=== PATIENT | female | born 1990 | race Caucasian/White ===

== ENCOUNTER 2016-08-25 06:55 | Inpatient (IN) | payer MEDICAID ==
[~2016-08-25] VITALS: Ht 165.1 cm; Wt 112.0 kg
--- NOTE | ~2016-08-25 | FD ---
ADMIT: 08/25/2016 RM/LOC: 201 [facility] MR#: [id number] [address] [address] WEEKS, MARIA EUGENIA Seymour [address] [place] [address] Final Diagnosis SEX: F AGE: 26 : 1990 ADMISSION DATE: 08/25/2016 DISCHARGE DATE: 08/27/2016 FINAL DIAGNOSIS: 1. Term intrauterine at 39 weeks 2 days. 2. Active labor. 3. Rubella nonimmune. 4. Rh (Rhesus) negative. 5. Group B strep (Streptococcus) positive. PROCEDURE: Spontaneous vaginal delivery. Phyllis Oro MD/ dolly JOB #: [id number] CC: Kaylee Collins MD, Attending Physician Phyllis Oro MD, Family Physician
--- NOTE | ~2016-08-25 | OR ---
ADMIT: 08/25/2016 RM/LOC: 201 [facility] MR#: [id number] 26[address] [facility] [address] [place], [place] [address] WEEKS, MARIA EUGENIA Seymour [address] [place] [address] Operative/Delivery Room Report SEX: F AGE: 26 : 1990 SURGERY DATE: 08/25/2016 SURGEON: Phyllis Oro MD PREOPERATIVE DIAGNOSES: 1. Term intrauterine at 39 weeks and 2/7th days. 2. Active labor. 3. Group B streptococcus positive. 4. Rubella nonimmune. 5. Rhesus negative. POSTOPERATIVE DIAGNOSES: 1. Term intrauterine at 39 weeks and 2/7th days. 2. Active labor. 3. Group B streptococcus positive. 4. Rubella nonimmune. 5. Rhesus negative. PROCEDURE: Spontaneous vaginal delivery. FINDINGS: Viable male infant with scores of 8 and 9 and a weight of 7 pounds 6.5 ounces, intact placenta with three-vessel cord. Second-degree laceration of the perineum was noted and repaired. INDICATIONS FOR PROCEDURE: This is a 26-year-old , who presented to Labor and Delivery at 39 weeks and 2 days by 11-week ultrasound. Upon presentation to the Labor and Delivery, she was found to be complete with a bulging bag and ruptured spontaneously shortly thereafter. Penicillin for GBS prophylaxis was not able to be initiated prior to delivery due to rapid delivery after her presentation. DESCRIPTION OF PROCEDURE: With sterile drapes under maternal buttocks and with maternal expulsive efforts, head was delivered over intact perineum. No nuchal cord was noted. The rest of the infant was then delivered. Infant was placed on maternal chest. Delayed cord clamping was employed until the cord was no longer pulsating. Cord was then clamped and cut. Then, cord blood was collected. Placenta then delivered spontaneously intact. Second-degree perineal laceration was noted. Because the skin portion of the perineal laceration extended down to the anal verge, a rectal ADMIT: 08/25/2016 RM/LOC: 201 [facility] MR#: [id number] [address] [address] WEEKS, MARIA EUGENIA Seymour [address] [place] [address] Operative/Delivery Room Report SEX: F AGE: 26 : 1990 exam was performed to confirm that this was indeed a third-degree without buttonholing into the rectum, and sphincter was intact on exam. The second- degree laceration was then repaired using 3-0 Vicryl in a running locked fashion starting at the apex within the vagina to the level of the hymen. A single suture of 2-0 Vicryl was used to reapproximate the deep perineal structures and then, 3-0 Vicryl was then used to complete crown stitching down to the level of the anal verge and returned back up to the level of the hymen with subcuticular stitches. Sponge and instrument counts were correct x2. COMPLICATIONS: None. DISPOSITION: Mom stable in delivery room. to nursery. Phyllis Oro MD/ mariah JOB #: [id number] CC: Kaylee oCllins, Attending Physician Phyllis Oro, Family Physician
[2016-08-27] MEDS ORDERED: PRENATAL VIT1 TAB PO (20:10)
[2016-08-27] MEDS ORDERED: COLACE-DPS100 MG PO (20:10)
[2016-08-27] MEDS ORDERED: DERMOPLAST SPRA56 GM TP (20:10)
[2016-08-27] MEDS ORDERED: NIPPLECREAM TP (20:10)
[2016-08-27] MEDS ORDERED: MOTRIN-DPS800 MG PO (20:10)
[2016-08-27] MEDS ORDERED: LAN-O-SOOTHE7 GM TP (20:11)
[2016-08-27] MEDS ORDERED: TUCKS1 EACH TP (20:11)
--- NOTE | 2016-09-08 13:23 | HP ---
ADMIT: 08/25/2016 RM/LOC: 201 [facility] MR#: [id number] [facility]#: [id number] 26[address] [facility] [address] [place], [place] [address] WEEKS, MARIA EUGENIA Seymour [address] [place] [address] History and Physical SEX: F AGE: 26 : 1990 DATE OF SERVICE: 08/25/2016 HISTORY OF PRESENT ILLNESS: This is a 26-year-old, G1, P0, who presented to Labor and Delivery at 39 weeks and 2 days with complaints of regular contractions and was found to be in active labor. Her had been complicated by Rh-negative status, and GBS positive status. Upon presentation to the Labor and Delivery, she was found to be complete. She shortly thereafter ruptured her membranes and very quickly delivered. At the time of presentation, she denied any fevers, chills, chest pain, shortness of breath. She did note good movement. She did not have any loss of fluid prior to her arrival in Labor and Delivery. She was having a small amount of bloody show prior to arrival. PAST MEDICAL HISTORY: None. PAST SURGICAL HISTORY: She had a cholecystectomy in 2007. She has had arthroscopic knee surgery in 2014. Pap smear is up to date on 12/25/2013. ALLERGIES: NO KNOWN DRUG ALLERGIES. MEDICATIONS: She takes a vitamin daily. SOCIAL HISTORY: No tobacco, no alcohol. No drug use. 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 She has twice. FAMILY HISTORY: Cervical cancer, maternal grandmother. Hypertension, maternal grandfather, paternal grandfather. Breast cancer, paternal grandmother. OBSTETRICAL LABORATORY DATA: Her one-hour Glucola was 125. Her hemoglobin was 12.4. Hepatitis B surface antigen was negative. RPR was negative. She is rubella nonimmune. Blood type is O negative. Gonorrhea and chlamydia were negative. HIV was negative. Antibody screen was negative. REVIEW OF SYSTEMS: See HPI. PHYSICAL EXAMINATION: VITAL SIGNS: Blood pressure 134/61, pulse is 57, respirations normal. She is afebrile. GENERAL: The patient is uncomfortable with contractions. HEART: Regular rate and rhythm. No murmurs, rubs, or gallops. LUNGS: Clear to auscultation bilaterally. ABDOMEN: On initial exam, it was gravid and nontender. CERVIX: Sterile cervical exam upon presentation, she was complete with bulging bag. EXTREMITIES: No edema. heart tones upon presentation are 130. Moderate variability, positive ADMIT: 08/25/2016 RM/LOC: 201 [facility] MR#: [id number] 26[address] [facility] [address] [place] [address] WEEKS, MARIA EUGENIA [address] [place] [address] History and Physical SEX: F AGE: 26 : 1990 accelerations, no decelerations noted. ASSESSMENT AND PLAN: This is a 26-year-old, G1, P0, at 39 weeks and 2/7th days, who presented to Labor and Delivery in active labor and delivered very shortly thereafter. 1. The patient is GBS positive, however, due to her rapid delivery upon presentation antibiotics for prophylaxis were not able to be given prior to delivery. 2. Rh negative. Cord blood was sent for analysis and we will give RhoGAM if indicated. 3. Rubella nonimmune. She will need MMR prior to discharge from the hospital. Phyllis Oro MD/ mariah JOB #: [id number] CC: Kaylee Collins, Attending Physician Phyllis Oro, Family Physician
== END 2016-08-27 09:50 | disposition home or self-care (01) | DRG 775 ==
LOC: 2LDRP 06:55 → BC 06:55 → 2LDRP 07:29 → BC 08-30 08:00
DX: O75.89 Other specified complications of labor and delivery (principal); O99.824 Streptococcus B carrier state complicating childbirth; O70.1 Second degree perineal laceration during delivery; Z28.3 Underimmunization status; Z3A.39 39 weeks gestation of pregnancy; Z37.0 Single live birth